=== PATIENT | female | born 1990 | race American Indian/Alaskan Native ===

== ENCOUNTER 2017-10-11 21:25 | Emergency (ER) | payer MEDICAID ==
[2017-10-11 21:53] LABS: Basophils % (Auto) 0.5 % (0.0-1.8); Eosinophils # (Auto) 0.1 K/mm3 (0.0-0.4); Eosinophils % (Auto) 1.7 % (0.0-4.3); Hematocrit 30.4 % (30.3-42.9); Hemoglobin 10.2 gm/dl (10.1-14.3); Lymphocytes # (Auto) 1.5 K/mm3 (1.2-5.4); Lymphocytes % (Auto) 25.5 % (13.4-35.0); Mean Corpuscular HGB Conc 34 % (30-34); Mean Corpuscular Hemoglobin 29 pg (28-32); Mean Corpuscular Volume 86 fl (79-97); Monocytes # (Auto) 0.5 K/mm3 (0.0-0.8); Monocytes % (Auto) 8.3 % (0.0-7.3); Platelet Count 307 K/mm3 (140-440); Red Blood Count 3.53 M/mm3 (3.65-5.03); Red Cell Distribution Width 12.8 % (13.2-15.2)
[2017-10-11 22:07] LABS: Alanine Aminotransferase 6 units/L (7-56); BUN/Creatinine Ratio 18; Blood Urea Nitrogen 9 mg/dL (7-17); Calcium 9.2 mg/dL (8.4-10.2); Hemolysis Index 0; Lipase 35 units/L (13-60)
[2017-10-11 23:06] LABS: Bilirubin,Urine NEG (Negative); Blood,Urine NEG (Negative); Color,Urine Yellow (Yellow); Mucus,Urine FEW /HPF; Protein,Urine <15 mg/dL mg/dL (Negative); Urobilinogen,Urine < 2.0 mg/dL (<2.0)
--- NOTE | 2017-10-12 00:40 | Ultrasound Report ---
FINAL REPORT PROCEDURE: US OB > = 14 WEEKS FETUS TECHNIQUE: Real-time limited sonographic examination was performed for evaluation of size, position, heartbeat, fluid volume for each fetus with image documentation (1 or more fetuses). CPT 89522 HISTORY: abdominal pain, 16 wks preg COMPARISON: No prior studies are available for comparison. FINDINGS: MATERNAL Uterus: Within normal limits . Cervix length: 3.4 cm. Internal Os: Closed . FETUS IUP: Single living intrauterine . Position: Vertex. Placental position: Fundus, without previa . Amniotic fluid volume: Normal . Heart rate and rhythm: 146 BPM, Regular . anatomic survey: Not performed on this study. MEASUREMENTS BPD: 3.1 centimeter. HC: 12 centimeter. AC: 10.2 centimeter. FL: 2.2 centimeter. Mean Gestational Age (composite criteria): 16 weeks 1 day. Ratio biometry: Normal . Estimated Weight: 151 grams. Interval growth: Appropriate . Estimated Due Date (earliest scan): 03/28/2018. IMPRESSION: 1. Single living intrauterine gestation at approximately 16 weeks 1 day. 2. EDC by US 03/28/2018.
--- NOTE | 2017-10-12 04:06 | Emergency Department Report ---
ED HPI - General Chief complaint: Abdominal Pain Stated complaint: ABD PAIN; 16WKS GEST Time Seen by Provider: 10/12/17 02:56 Source: patient, RN notes reviewed Mode of arrival: Ambulatory Limitations: No Limitations - History of Present Illness Initial comments: This is a 27-year-old female who is unknown to this provider. She is 3 , para 2, her last menstrual period was in June, she denies a history of abdominal surgeries. She presents to the ER with a complaint of nontraumatic right-sided hamstring pain which radiates up the buttock and into the right paralumbar region and right lower quadrant. It has been present intermittently for the past few days. He does not have exacerbating or relieving factors. It is not present at this time. Patient denies weakness, ataxia, bladder or bowel retention or incontinence, saddle anesthesia. She denies constipation, urinary symptoms and vaginal bleeding. She denies heavy lifting, she denies trauma. She has no complaints currently. -: Gradual Radiation: other Severity: mild Consistency: intermittent Improves with: none Worsens with: none Associated symptoms: abdominal pain, other (see history of present illness). denies: nausea/vomiting, vaginal bleeding, vaginal discharge, dysuria, headache , vision changes, malaise, dysparuenia, rash, seizure, shortness of breath, syncope, weakness Vaginal bleeding: none OB History - Previous Pregnancies: no complications - Related Data Home Medications Medication Instructions Recorded Confirmed Last Taken Vits96/Iron Fum/Folic 1 each PO QDAY 03/27/13 06/04/16 09/04/13 10:00 [ Tablet] Previous Rx's Medication Instructions Recorded Last Taken Type Docusate Sodium [Colace] 100 mg PO BID PRN #60 capsule 06/05/16 Unknown Rx Ferrous Sulfate [Feosol 325 MG tab] 325 mg PO BID #60 tablet 06/05/16 Unknown Rx Ibuprofen [Motrin 800 MG tab] 800 mg PO TID PRN #30 tablet 06/05/16 Unknown Rx Acetaminophen [Tylenol Arthritis] 650 mg PO Q6HR PRN #30 tablet.er 10/12/17 Unknown Rx Doxylamine Succinate/Vit B6 1 each PO QHS PRN #30 tablet. 10/12/17 Unknown Rx [Pastor Pearson 10-10 mg Tablet] Vit Calc,Iron,Folic 1 each PO QDAY #30 tablet 10/12/17 Unknown Rx [ Vitamins] Allergies Allergy/AdvReac Type Severity Reaction Status Date / Time latex Allergy Rash Verified 10/11/17 21:36 ED Review of Systems ROS: Stated complaint: ABD PAIN; 16WKS GEST Other details as noted in HPI Comment: All other systems reviewed and negative Constitutional: denies: fever Respiratory: denies: cough Cardiovascular: denies: chest pain Gastrointestinal: abdominal pain. denies: nausea Genitourinary: denies: as per HPI Musculoskeletal: back pain, arthralgia, myalgia ED Past Medical Hx - Past Medical History Previous Medical History?: No Hx Hypertension: No Hx Congestive Heart Failure: No Hx Diabetes: No Hx Deep Vein Thrombosis: No Hx Renal Disease: No Hx Sickle Cell Disease: No Hx Seizures: No Hx Asthma: No Hx COPD: No Hx HIV: No - Surgical History Past Surgical History?: No - Social History Smoking Status: Never Smoker Substance Use Type: None - Medications Home Medications: Home Medications Medication Instructions Recorded Confirmed Last Taken Type Vits96/Iron Fum/Folic 1 each PO QDAY 03/27/13 06/04/16 09/04/13 10:00 History [ Tablet] Docusate Sodium [Colace] 100 mg PO BID PRN #60 capsule 06/05/16 Unknown Rx Ferrous Sulfate [Feosol 325 MG tab] 325 mg PO BID #60 tablet 06/05/16 Unknown Rx Ibuprofen [Motrin 800 MG tab] 800 mg PO TID PRN #30 tablet 06/05/16 Unknown Rx Acetaminophen [Tylenol Arthritis] 650 mg PO Q6HR PRN #30 tablet.er 10/12/17 Unknown Rx Doxylamine Succinate/Vit B6 1 each PO QHS PRN #30 tablet. 10/12/17 Unknown Rx [Pastor Pearson 10-10 mg Tablet] Vit Calc,Iron,Folic 1 each PO QDAY #30 tablet 10/12/17 Unknown Rx [ Vitamins] ED Physical Exam - General Limitations: No Limitations General appearance: alert, in no apparent distress - Head Head exam: Present: atraumatic, normocephalic - Eye Eye exam: Present: normal appearance, EOMI. Absent: nystagmus - ENT ENT exam: Present: normal exam, normal orophraynx, mucous membranes moist, normal external ear exam - Neck Neck exam: Present: normal inspection, full ROM. Absent: tenderness, meningismus - Respiratory Respiratory exam: Present: normal lung sounds bilaterally. Absent: respiratory distress - Cardiovascular Cardiovascular Exam: Present: regular rate, normal rhythm, normal heart sounds. Absent: bradycardia, tachycardia, irregular rhythm, systolic murmur, diastolic murmur, rubs, gallop - GI/Abdominal GI/Abdominal exam: Present: soft, normal bowel sounds, other (it is no right lower quadrant or right flank tenderness. There is no right upper quadrant tenderness. There is negative Hanna sign. His negative Rovsing sign.). Absent: distended, tenderness, guarding, rebound, rigid, pulsatile mass - Extremities Exam Extremities exam: Present: normal inspection, full ROM, normal capillary refill , other (the compartments are soft. 2+ pulses noted in the bilateral upper, lower extremities. Pelvis is stable.). Absent: tenderness, pedal edema, joint swelling, calf tenderness - Back Exam Back exam: Present: normal inspection, full ROM, paraspinal tenderness. Absent : tenderness, CVA tenderness (R) - Neurological Exam Neurological exam: Present: alert, oriented X3, CN II-XII intact, normal gait, other (Extraocular movements intact. Tongue midline. No facial droop. Facial sensation intact to light touch in the V1, V2, V3 distribution bilaterally. 5 and 5 strength in 4 extremities.. Sensation is intact to light touch in 4 extremities.). Absent: motor sensory deficit - Psychiatric Psychiatric exam: Present: normal affect, normal mood - Skin Skin exam: Present: warm, dry, intact, normal color. Absent: rash ED Course Vital Signs 10/11/17 10/12/17 10/12/17 21:32 03:40 03:45 Temperature 98.3 F 98.2 F Pulse Rate 95 H 84 Respiratory 16 20 20 Rate Blood Pressure 109/60 Blood Pressure 94/59 [Right] O2 Sat by Pulse 100 99 99 Oximetry ED Medical Decision Making - Lab Data Result diagrams: 10/11/17 21:42 10/11/17 21:42 Vital Signs 10/11/17 10/12/17 10/12/17 21:32 03:40 03:45 Temperature 98.3 F 98.2 F Pulse Rate 95 H 84 Respiratory 16 20 20 Rate Blood Pressure 109/60 Blood Pressure 94/59 [Right] O2 Sat by Pulse 100 99 99 Oximetry Labs 10/11/17 10/11/17 10/11/17 21:42 21:42 21:42 WBC 5.8 RBC 3.53 L Hgb 10.2 Hct 30.4 MCV 86 MCH 29 MCHC 34 RDW 12.8 L Plt Count 307 Lymph % (Auto) 25.5 [place] % (Auto) 8.3 H Eos % (Auto) 1.7 Baso % (Auto) 0.5 Lymph # 1.5 [place] # 0.5 Eos # 0.1 Baso # 0.0 Seg Neutrophils % 64.0 Seg Neutrophils # 3.7 Sodium 135 L Potassium 3.6 Chloride 98.8 Carbon Dioxide 23 Anion Gap 17 BUN 9 Creatinine 0.5 L Estimated GFR > 60 BUN/Creatinine Ratio 18 Glucose 105 H Calcium 9.2 Total Bilirubin < 0.20 AST 12 ALT 6 L Alkaline Phosphatase 50 Total Protein 6.9 Albumin 4.0 Albumin/Globulin Ratio 1.4 Lipase 35 HCG, Qual Positive HCG, Quant Urine Color Urine Turbidity Urine pH Ur Specific [place] Urine Protein Urine Glucose (UA) Urine Ketones Urine Blood Urine Nitrite Urine Bilirubin Urine Urobilinogen Ur Leukocyte Esterase Urine WBC (Auto) Urine RBC (Auto) U Epithel Cells (Auto) Urine Mucus 10/11/17 10/11/17 22:43 23:30 WBC RBC Hgb Hct MCV MCH MCHC RDW Plt Count Lymph % (Auto) [place] % (Auto) Eos % (Auto) Baso % (Auto) Lymph # [place] # Eos # Baso # Seg Neutrophils % Seg Neutrophils # Sodium Potassium Chloride Carbon Dioxide Anion Gap BUN Creatinine Estimated GFR BUN/Creatinine Ratio Glucose Calcium Total Bilirubin AST ALT Alkaline Phosphatase Total Protein Albumin Albumin/Globulin Ratio Lipase HCG, Qual HCG, Quant 75678 H Urine Color Yellow Urine Turbidity Clear Urine pH 6.0 Ur Specific [place] 1.023 Urine Protein <15 mg/dl Urine Glucose (UA) 150 Urine Ketones Neg Urine Blood Neg Urine Nitrite Neg Urine Bilirubin Neg Urine Urobilinogen < 2.0 Ur Leukocyte Esterase Neg Urine WBC (Auto) 3.0 Urine RBC (Auto) 2.0 U Epithel Cells (Auto) < 1.0 Urine Mucus Few - Radiology Data Radiology results: report reviewed, image reviewed Print Report Referring Physician: ED DOC Patient Name: CORNELIUS HAYES Date of : 1990 Sex: Female Report Date: 2017-10-12 Report Status: Finalized Findings [facility] [address] [place] [address] Ultrasound Report Signed Patient: CORNELIUS HAYES MR#: [id number] : 1990 Acct:[id number] Age/Sex: 27 / F ADM Date: 10/11/17 Loc: ED Attending Dr: Ordering Physician: CONNOR CAZARES MD Date of Service: 10/11/17 Procedure(s): US OB >= 14 weeks Fetus Accession Number(s): [id number] cc: CONNOR CAZARES MD FINAL REPORT PROCEDURE: US OB gt; = 14 WEEKS FETUS TECHNIQUE: Real-time limited sonographic examination was performed for evaluation of size, position, heartbeat, fluid volume for each fetus with image documentation (1 or more fetuses). CPT 29330 HISTORY: abdominal pain, 16 wks preg COMPARISON: No prior studies are available for comparison. FINDINGS: MATERNAL Uterus: Within normal limits . Cervix length: 3.4 cm. Internal Os: Closed . FETUS IUP: Single living intrauterine . Position: Vertex. Placental position: Fundus, without previa . Amniotic fluid volume: Normal . Heart rate and rhythm: 146 BPM, Regular . anatomic survey: Not performed on this study. MEASUREMENTS BPD: 3.1 centimeter. HC: 12 centimeter. AC: 10.2 centimeter. FL: 2.2 centimeter. Mean Gestational Age (composite criteria): 16 weeks 1 day. Ratio biometry: Normal . Estimated Weight: 151 grams. Interval growth: Appropriate . Estimated Due Date (earliest scan): 03/28/2018. IMPRESSION: 1. Single living intrauterine gestation at approximately 16 weeks 1 day. 2. EDC by US 03/28/2018. Transcribed By: [facility] Dictated By: ARTURO WREN MD Electronically Authenticated By: ARTURO WREN MD Signed Date/Time: 10/12/1736 DD/ - Medical Decision Making Menstrual diagnoses, including but not limited to: Musculoskeletal pain, radiculopathy, round ligament pain Assessment and plan: 27-year-old female with nontraumatic right-sided posterior hamstring pain, gluteal pain, reproducible paralumbar back pain. There is no abdominal tenderness, rebound or guarding. Her physical exam is unremarkable, she has equal pulses in the upper, lower extremities, there is no pulsatile abdominal mass, she walks with a steady gait, there is no evidence of epidural compression syndrome at this time. She declined pain medication at this time, ultrasound did not demonstrate any significant findings. Patient will be medicated on an as-needed basis with acetaminophen, we will continue vitamins, as needed nausea medicines, she is medically suitable to follow-up with her outpatient [facility] physician at this time. Critical care attestation.: If time is entered above; I have spent that time in minutes in the direct care of this critically ill patient, excluding procedure time. ED Disposition Clinical Impression: Back pain, Disposition: TO HOME OR SELFCARE Is pt being admited?: No Does the pt Need Aspirin: No Condition: Stable Instructions: Abdominal Pain (ED) Additional Instructions: Rest, and avoid heavy lifting. Avoid strenuous physical activity. Follow up with an [facility] doctor within the next 7-10 days. Return to the ER right away with new pain, worsening pain, migration of pain, fevers, chills, lethargy, irritability, projectile vomiting, change in mental status, confusion, inability to tolerate liquid feeds. Referrals: [facility] [Primary Care Provider] - 3-5 Days [facility] [Provider Group] - 3-5 Days [facility], [facility] [Provider Group] - 3-[address] [facility] [Provider Group] - 3-5 Days
[2017-10-12 06:04] VITALS: BP 100/60
== END 2017-10-12 06:04 | disposition home or self-care (01) ==
LOC: ED 21:25
DX: O26.892 Other specified pregnancy related conditions, second trimester (principal); M54.9 Dorsalgia, unspecified; Z3A.16 16 weeks gestation of pregnancy; Z91.040 Latex allergy status
CPT/HCPCS: 36415; 76805; 80053; 81001; 83690; 84702; 84703; 85025

== ENCOUNTER 2021-08-21 22:12 | Emergency (ER) | payer MEDICAID ==
[2021-08-22 00:18] LABS: Basophils % (Auto) 0.7 % (0.0-1.8); Eosinophils # (Auto) 0.1 K/mm3 (0.0-0.4); Eosinophils % (Auto) 1.7 % (0.0-4.3); Hematocrit 38.9 % (30.3-42.9); Lymphocytes # (Auto) 1.4 K/mm3 (1.2-5.4); Lymphocytes % (Auto) 25.5 % (13.4-35.0); Mean Corpuscular HGB Conc 33 % (30-34); Mean Corpuscular Volume 88 fl (79-97); Monocytes # (Auto) 0.7 K/mm3 (0.0-0.8); Monocytes % (Auto) 11.7 % (0.0-7.3); Platelet Count 390 K/mm3 (140-440); Red Cell Distribution Width 12.2 % (13.2-15.2)
[2021-08-22 00:22] LABS: Bilirubin,Urine NEG (Negative); Blood,Urine NEG (Negative); Color,Urine Yellow (Yellow); Mucus,Urine FEW /HPF; Protein,Urine <15 mg/dL mg/dL (Negative); Urobilinogen,Urine < 2.0 mg/dL (<2.0)
[2021-08-22 01:21] LABS: Alanine Aminotransferase 13 units/L (7-56); Albumin 4.6 g/dL (3.9-5); Blood Urea Nitrogen 6 mg/dL (7-17); Calcium 9.4 mg/dL (8.4-10.2); Hemolysis Index 10
[2021-08-22 01:25] LABS: BUN/Creatinine Ratio 9
== END 2021-08-22 01:33 | disposition left against medical advice (07) ==
LOC: ED 22:12
DX: O26.891 Other specified pregnancy related conditions, first trimester (principal); R42 Dizziness and giddiness; Z53.21 Procedure and treatment not carried out due to patient leaving prior to being seen by health care provider; Z3A.01 Less than 8 weeks gestation of pregnancy
CPT/HCPCS: 36415; 80053; 81001; 85025